=== PATIENT | female | born 1970 | race Caucasian/White ===

== ENCOUNTER → 2018-02-18 | Outpatient (REF) | payer OTHER ==
[2018-02-18 13:42] LABS: ERYTHROCYTE SEDIMENTATION RATE 41 mm/hr (0-20)
[2018-02-18 14:06] LABS: VITAMIN B12 LEVEL 386 PG/ML
[2018-02-18 14:09] LABS: RHEUMATOID FACTOR QUANT < 10.0 IU/ML (<15.0); TOTAL PROTEIN 7.6 GM/DL (6.4-8.2)
[2018-02-18 14:10] LABS: FOLATE 11.8 NG/ML
[2018-02-19 11:52] LABS: ALBUMIN 4.01 GM/DL (3.29-5.55); ALBUMIN % 52.7 % (55.8-66.1); ALPHA-1-GLOBULIN % 4.1 % (2.9-4.9); ALPHA-1-GLOBULINS 0.31 GM/DL (0.17-0.41); ALPHA-2-GLOBULINS 0.89 GM/DL (0.42-0.99); ALPHA-2-GLOBULINS % 11.7 % (7.1-11.8); BETA-1-GLOBULINS 0.68 GM/DL (0.28-0.60); BETA-2-GLOBULINS 0.59 GM/DL (0.19-0.55); BETA-2-GLOBULINS % 7.8 % (3.2-6.5); GAMMA GLOBULIN % 14.7 % (11.1-18.8); GAMMA GLOBULINS 1.12 GM/DL (0.65-1.58)
[2018-02-24 10:41] LABS: PTT LUPUS TYPE ANTICOAG SCREEN 0.9 (0-1.2)
[2018-02-25 00:07] LABS: ANCA-ATYPICAL <1:20 titer (Neg:<1:20); ANTI DOUBLE STRAND-DNA AB 7 IU/mL (0-9); ANTI THROMBIN 3 FUNCT ACTIVITY 107 % (75-135); ANTINUCLEAR ANTIBODIES DIRECT Negative (Negative); CARDIOLIPIN IGA ANTIBODY <9 APL U/mL (0-11); CARDIOLIPIN IGG ANTIBODY <9 GPL U/mL (0-14); CARDIOLIPIN IGM ANTIBODY <9 MPL U/mL (0-12); CERULOPLASMIN 25.1 mg/dL (19.0-39.0); COPPER PLASMA 104 ug/dL (72-166); CYTOPLASMIC NEUTROP AB ANCA-C <1:20 titer (Neg:<1:20); PERINUCLEAR AB ANCA-P <1:20 titer (Neg:<1:20); PROTEIN C FUNCTIONAL ACTIVITY 117 % (73-180); PROTEIN S FUNCTIONAL ACTIVITY 73 % (63-140); SJOGREN'S ANTI SS-A <0.2 AI (0.0-0.9); SJOGREN'S ANTI SS-B <0.2 AI (0.0-0.9)
== END ==
LOC: M LABNEURO 09:03
DX: I63.9 Cerebral infarction, unspecified (principal); G62.9 Polyneuropathy, unspecified
CPT/HCPCS: 82525

== ENCOUNTER → 2018-02-25 | Outpatient (CLI) | payer OTHER | LOC: M CARPUL 10:22 | DX: Z86.73 Personal history of transient ischemic attack (TIA), and cerebral infarction without residual deficits (principal) | CPT/HCPCS: 93306 ==

== ENCOUNTER → 2018-04-29 | Outpatient (CLI) | payer OTHER ==
[~2018-04-29] MED LIST: ISOVUE-370 76% 100ML VIAL (Q9967) As Ordered
[2018-04-29 13:56] LABS: ANION GAP 10 MEQ/L (8-16); BLOOD UREA NITROGEN 15 MG/DL (7-18); CALCIUM LEVEL 9.3 MG/DL (8.5-10.1); CARBON DIOXIDE LEVEL 26 MEQ/L (21-32); CHLORIDE LEVEL 103 MEQ/L (98-107); CREATININE FOR GFR 1.02 MG/DL (0.55-1.30); GLOMERULAR FILTRATION RATE > 60.0 (>58); GLUCOSE, FASTING 97 MG/DL (70-100); POTASSIUM SERUM 3.8 MEQ/L (3.5-5.1); SODIUM LEVEL 139 MEQ/L (136-145)
== END ==
LOC: M RAD 11:46
DX: Z01.818 Encounter for other preprocedural examination (principal); I73.9 Peripheral vascular disease, unspecified
CPT/HCPCS: Q9967

== ENCOUNTER → 2019-03-24 | Outpatient (REF) | payer OTHER | LOC: M LAB REF 09:53 | PROVIDERS: ATTEND Ophthalmology | DX: H17.11 Central corneal opacity, right eye (principal) ==

== ENCOUNTER 2019-06-17 05:50 | Day surgery (SDC) | payer OTHER ==
[~2019-06-17] VITALS: Ht 160 cm; Wt 90.3 kg
[~2019-06-17 05:50] MED LIST changes: +ATOR40TA75 PO; +CILO100T PO; +CLOP75TA2 PO; +CYAN100050 PO; +FERR325T82 PO; -ISOVUE-370 76% 100ML VIAL (Q9967) As Ordered; +JANU50TA4 PO; +LISI-538 PO; +METO1TAB32 PO; +PREN1TAB14 PO; +VALA1TAB2 PO
[2019-06-17] MEDS ORDERED: POVIDONE-IODINE 5% OPHTH PREP SOL 30ML As Ordered ONE (06:39)
[2019-06-17] MEDS ORDERED: BETAMETHASONE SOLUSPAN 6MG/ML INJ 5ML (J0702) As Ordered ONE (06:40)
[2019-06-17] MEDS ORDERED: TOBRADEX OPHTH OINT 3.5 GM As Ordered ONE ×2 (06:40→09:41)
[2019-06-17] MEDS ORDERED: TOBRAMYCIN INJ 80 MG/2 ML VIAL (J3260) As Ordered ONE (06:40)
[2019-06-17] MEDS ORDERED: fentaNYL 100 MCG/2 ML INJECTION (J3010) As Ordered ONE ×2 (07:09→09:59)
[2019-06-17] MEDS ORDERED: LIDOCAINE 2% INJ 100 MG/5 ML SDV (FOR ANES.) As Ordered ONE (07:09)
[2019-06-17] MEDS ORDERED: PROPOFOL 200 MG/20 ML VIAL As Ordered ONE (07:09)
[2019-06-17] MEDS ORDERED: MIDAZOLAM INJ 2 MG/2 ML VIAL (J2250) As Ordered ONE (07:09)
[2019-06-17] MEDS ORDERED: FILTER 1.2 MICRON (ADULT TPN/MANNITOL/REMICADE) XX ONE (07:26)
[2019-06-17] MEDS ORDERED: MANNITOL IV SCH (07:30)
[2019-06-17] MEDS ORDERED: DILUENT IV SCH (07:30)
[2019-06-17] MEDS ORDERED: DUOVISC (0.50ML VISCOAT/0.55ML PROVISC) OPHTH KIT As Ordered ONE ×3 (07:35→08:26)
[2019-06-17] MEDS ORDERED: dexameTHASONE 4 MG/ML 1ML VIAL (J1100) As Ordered ONE (07:50)
[2019-06-17] MEDS ORDERED: ePHEDrine SULFATE 25 MG/5 ML(5MG/ML) SYRINGE As Ordered ONE (07:54)
[2019-06-17] MEDS ORDERED: PHENYLephrine HCL 500 MCG/5 ML (100MCG/ML) SYRINGE (J2370) As Ordered ONE (07:56)
[2019-06-17] MEDS ORDERED: ROCURONIUM BROMIDE 50 MG/5 ML VIAL As Ordered ONE (08:01)
[2019-06-17] MEDS ORDERED: ONDANSETRON 4MG/2ML VIAL (J2405) As Ordered ONE ×2 (08:11→10:05)
[2019-06-17] MEDS ORDERED: SUGAMMADEX SODIUM 500 MG/5 ML VIAL (BRIDION) As Ordered ONE (08:11)
[2019-06-17] MEDS ORDERED: ACETYLCHOLINE OPHTH SOLN 1% 2ML (MIOCHOL-E) As Ordered ONE (08:17)
[2019-06-17] MEDS ORDERED: TRIAMCINOLONE PRES FR 40 MG/ML 1ML(TRIESENCE)(OR EYE ONLY)(J3300 PER 1MG) As Ordered ONE (09:24)
[2019-06-17] MEDS ORDERED: FLUORESCEIN OPHTH 1 MG STRIP As Ordered ONE (09:31)
[2019-06-17] MEDS: fentaNYL 100 MCG/2 ML INJECTION (J3010) IV PRN ×4 (10:00→10:15)
[2019-06-17] MEDS ORDERED: METOCLOPRAMIDE INJ 10MG/2ML VIAL (J2765) As Ordered ONE (10:15)
[2019-06-17] MEDS ORDERED: ONDANSETRON 4MG/2ML VIAL (J2405) IV PRN (10:30)
[2019-06-17] MEDS ORDERED: METOCLOPRAMIDE INJ 10MG/2ML VIAL (J2765) IV PRN (10:30)
[2019-06-17 11:30] VITALS: BP 110/63
[2019-06-17] MEDS ORDERED: ACETAMINOPHEN 500 MG TAB As Ordered ONE (11:40)
[2019-06-17] MEDS ORDERED: ACETAMINOPHEN 500 MG TAB PO ONE (11:45)
--- NOTE | 2019-06-21 08:13 | RO ---
DATE OF PROCEDURE: 06/17/2019 PREOPERATIVE DIAGNOSES: 1. 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 2. 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 3. Iris atrophy, right eye. 4. Mild nuclear sclerosis, right eye POSTOPERATIVE DIAGNOSES: 1. 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 2. 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 3. Iris atrophy, right eye 4. Mild nuclear sclerosis, right eye 5. Temporary tarsorrhapy, right eye PROCEDURE: 1. Penetrating keratoplasty of the right eye (8.0 mm host/ 8.5 mm donor) 2. Sub-Tenon injections ( Triescence 0.5 mL and Tobramycin 0.5 mL). SURGEON: Gómez Duran DO WEIGHMASTER: None ANESTHESIA: General. DESCRIPTION OF PROCEDURE: The patient was seen and identified in the preoperative area. The consent was reviewed, and the surgical eye was marked. The patient was then transferred to the operating room. At that time, the patient was placed under general anesthesia per the anesthesia department and then the eye was prepped and draped in a sterile fashion. Tegaderm was used to isolate the upper and lower eyelids, and a wire lid speculum was placed. A Flieringa ring was sutured with three 6-0 nylon sutures to the sclera and then an 8.0 mm metal corneal was used to size the corneal graft. 8.0 mm was found to be an appropriate size to trephinate the host cornea, and decision was made to trephinate the donor at 8.5mm. At that time, attention was turned to the donor cornea. The cornea was placed endothelial side up in an 8.5 mm Albert punch. The cornea was trephinated to 8.5 mm. The corneal scleral rim was cut in half, and half was sent to pathology and the other half was sent to microbiology. Attention was then turned back to the patient. Using an 8.0 mm Albert-[place] vacuum corneal punch, the vacuum trephine was placed on the patient's cornea. Vacuum was then achieved, and approximately seven turns to the vacuum trephine was appropriate to partially trephinate the cornea. A paracentesis incision was made in the partial trephination line and then Provisc was injected into the anterior chamber. Using right going and then left going scissors, the cornea was removed in its entirety. Copious amounts of cohesive viscoelastic was placed on top of the iris. The donor cornea was brought near the patient's eye using Polack forceps and a [place] spatula. The first 10-0 nylon suture was placed at the 12 o'clock meridian, and then the four cardinal sutures were put into the position with 10-0 nylon sutures at 12, 6, 3, and 9 o'clock. Additional sutures 10-0 nylon sutures were placed circumferentially until the graft was secured into position and no leaks were found. Viscoelastic was washed from the anterior chamber. Sixteen sutures ended up being placed, and then the chamber was refilled with balance salt solution (BSS). Miochol was placed showing a moderately small pupil, and intraocular pressure was within normal limits. Using a Weck spear, all the sutures were dried and then rotated so that the knots were buried. The fluorescein strip was used to look for any leaks, and none were found. At that time, the Flieringa ring was removed. The speculum and Tegaderm were removed. 0.5 mL of Kenalog Triesence and tobramycin were injected into the inferior sub-Tenon space. A double-armed #5-0 nylon suture was used to place a temporary central tarsorrhaphy, and this was left untied. The long ends were secured to the patient's forehead with Steri-Strips. A large amount of TobraDex was placed into the eye, and then the eyelid was closed. A patch and shield were placed, and the patient was extubated without difficulty and sent to the postanesthesia care unit (PACU) in a stable condition. ERICKA
== END 2019-06-17 12:10 | disposition home or self-care (01) ==
LOC: M SDC 05:50
PROVIDERS: ATTEND Ophthalmology
DX: H17.11 Central corneal opacity, right eye (principal); B00.52 Herpesviral keratitis; H21.26 Iris atrophy (essential) (progressive); I11.0 Hypertensive heart disease with heart failure; I50.9 Heart failure, unspecified; Z95.5 Presence of coronary angioplasty implant and graft; E78.00 Pure hypercholesterolemia, unspecified; E11.9 Type 2 diabetes mellitus without complications; D64.9 Anemia, unspecified; I25.2 Old myocardial infarction; Z86.73 Personal history of transient ischemic attack (TIA), and cerebral infarction without residual deficits; Z98.84 Bariatric surgery status; Z79.899 Other long term (current) drug therapy; Z79.02 Long term (current) use of antithrombotics/antiplatelets; Z79.84 Long term (current) use of oral hypoglycemic drugs
CPT/HCPCS: 65730; 67515; 81025; 87070; 87075; 87076; 88300; J0702; J1100; J2250; J2370; J2405; J2765; J3010; J3260; J3300

== ENCOUNTER 2023-05-05 12:10 | Inpatient (IN) | payer OTHER ==
[~2023-05-05] VITALS: Ht 157.5 cm; Wt 100.0 kg
[~2023-05-05 12:10] MED LIST changes: -CILO100T PO; +CILO100T3 PO; +CYAN-1 PO; -CYAN100050 PO; -LISI-538 PO; +LISI20TA33 PO; -VALA1TAB2 PO; +VALA1TAB5 PO
[2023-05-05] MEDS ORDERED: NS 1,000 ML IV ONE (16:40)
[2023-05-05] MEDS ORDERED: ONDANSETRON 4MG 2ML VIAL IV ONE (16:40)
[2023-05-05] MEDS ORDERED: MORPHINE 4 MG/ML 1ML VIAL IV ONE (16:40)
[2023-05-05 17:43] LABS: BASO % 0.2 % (0.0-1.0); EOS % 0.1 % (0.0-3.0); HEMATOCRIT 39.5 % (36.0-47.0); HEMOGLOBIN 12.3 g/dl (12.0-15.5); LYMPH # 1.2 10^3/uL (1.5-5.0); LYMPH % 7.1 % (24.0-44.0); MEAN CORPUSCULAR HGB CONC 31.1 g/dl (32.0-36.5); MEAN CORPUSCULAR VOLUME 86.6 fl (80.0-96.0); MONO % 5.9 % (2.0-8.0); NEUTROPHILS # 14.3 10^3/uL (1.5-8.5); NEUTROPHILS % 86.4 % (36.0-66.0); PLATELET COUNT, AUTOMATED 631 10^3/uL (150-450); RED BLOOD COUNT 4.56 10^6/uL (4.00-5.40); WHITE BLOOD COUNT 16.6 10^3/uL (4.0-10.0)
[2023-05-05 17:58] LABS: CK-MB VALUE MASS < 1.0 NG/ML (<3.6); LIPASE 26 U/L (12-53)
[2023-05-05 18:00] LABS: ALKALINE PHOSPHATASE 113 U/L (46-116); ALT/SGPT 15 U/L (7.0-40); AST/SGOT 26 U/L (<34); BILIRUBIN,DIRECT 0.2 MG/DL (<0.4); BILIRUBIN,TOTAL 0.4 MG/DL (0.3-1.2); TOTAL PROTEIN 6.5 G/DL (5.7-8.2)
[2023-05-05 18:06] LABS: CPK CREATINE PHOSPHOKINASE 61 U/L (34-145); MB/CK RELATIVE INDEX 1.63 (< OR =4)
[2023-05-05] MEDS: GASTROGRAFIN SOLUTION 30ML PO SCH ×2 (18:24→18:54)
[2023-05-05 18:29] LABS: INR 1.11
[2023-05-05 18:30] LABS: PARTIAL THROMBOPLASTIN TIME 24.9 SECONDS (24.8-34.2)
[2023-05-05] MEDS ORDERED: ISOVUE-370 76% 100ML VIAL As Ordered ONE (18:48)
[2023-05-05 18:49] LABS: CK-MB VALUE MASS < 1.0 NG/ML (<3.6)
[2023-05-05 18:50] LABS: CPK CREATINE PHOSPHOKINASE 55 U/L (34-145); MB/CK RELATIVE INDEX 1.81 (< OR =4)
[2023-05-05] MEDS ORDERED: PIPERACILLIN/TAZOBACTAM SOD 3.375 GM in D5W MINI-BAG PLUS 50 ML IV ONE (20:55)
[2023-05-05] MEDS ORDERED: METOCLOPRAMIDE INJ 10MG/2ML VIAL IV PRN (21:35)
[2023-05-05] MEDS: NS 1,000 ML IV SCH (21:50)
[2023-05-05] MEDS ORDERED: DEXTROSE 50% 50ML SYRINGE IV PRN (21:55)
[2023-05-05] MEDS ORDERED: GLUCAGON INJ 1MG VIAL SC PRN (21:55)
[2023-05-05] MEDS ORDERED: GLUCOSE 4GM CHEW TABLET PO PRN (21:55)
[2023-05-05] MEDS ORDERED: ACETAMINOPHEN TAB 650MG DOSE (2X325MG) PO PRN (22:35)
[2023-05-05] MEDS ORDERED: MORPHINE 2 MG/ML 1ML VIAL IV PRN ×2 (22:35)
[2023-05-05] MEDS ORDERED: ALBUTEROL 90 MCG/ACT 8GM HFA INHALER INH PRN (22:45)
[2023-05-05 22:47] VITALS: BP 138/88; TEMP 97.3; O2SAT 100
[2023-05-05 23:32] LABS: APPEARANCE, URINE CLEAR (CLEAR); BACTERIA, URINE AUTO NEGATIVE (NEGATIVE); BILIRUBIN, URINE AUTO NEGATIVE (NEGATIVE); BLOOD, URINE BLOOD NEGATIVE (NEGATIVE); COLOR, URINE YELLOW (YELLOW); GLUCOSE, URINE (UA) AUTO NEGATIVE (NEGATIVE); KETONE, URINE AUTO 1+ mg/dL (NEGATIVE); LEUKOCYTE ESTERASE, URINE AUTO NEGATIVE (NEGATIVE); MUCUS, URINE SMALL (NEGATIVE); NITRITE, URINE AUTO NEGATIVE (NEGATIVE); PROTEIN, URINE AUTO NEGATIVE (NEGATIVE); RBC, URINE AUTO 2 /HPF (0-3); SPECIFIC GRAVITY URINE AUTO 1.046 (1.002-1.035); SQUAMOUS EPITHELIAL CELL UR AU 2 /HPF (0-6); UROBILINOGEN, URINE AUTO 0.2 mg/dL (0.0-2.0); WBC, URINE AUTO 2 /HPF (0-3)
[2023-05-05] MEDS ORDERED: ASPI-226 PO (23:33)
[2023-05-05] MEDS ORDERED: PANT40TA29 PO (23:33)
[2023-05-05] MEDS ORDERED: ELIQ5TAB PO (23:33)
[2023-05-05] MEDS ORDERED: TRUL10IN SC (23:33)
[2023-05-05] MEDS ORDERED: LISI5TAB11 PO (23:33)
[2023-05-05] MEDS ORDERED: ALBU8.5H INH (23:34)
[2023-05-05] MEDS ORDERED: HOME MED LIST COMPLETE! XX SCH (23:35)
[2023-05-06] MEDS: APIXABAN 5 MG TAB (ELIQUIS) PO SCH ×3 (00:07→19:55)
[2023-05-06] MEDS: PANTOPRAZOLE 40MG VIAL IV SCH ×2 (00:07→12:01)
[2023-05-06] MEDS: ATORVASTATIN 20 MG TAB PO SCH ×2 (00:07→19:55)
[2023-05-06] MEDS: PIPERACILLIN/TAZOBACTAM SOD 3.375 GM in D5W MINI-BAG PLUS 50 ML IV SCH ×2 (02:05→10:14)
[2023-05-06 06:00] VITALS: BP 106/67; TEMP 97.7; O2SAT 97
[2023-05-06 06:20] LABS: BASO % 0.5 % (0.0-1.0); EOS # 0.4 10^3/uL (0.0-0.5); HEMATOCRIT 32.8 % (36.0-47.0); LYMPH # 2.1 10^3/uL (1.5-5.0); LYMPH % 24.1 % (24.0-44.0); MEAN CORPUSCULAR HEMOGLOBIN 26.8 pg (27.0-33.0); MEAN CORPUSCULAR HGB CONC 31.1 g/dl (32.0-36.5); MEAN CORPUSCULAR VOLUME 86.3 fl (80.0-96.0); MONO % 11.5 % (2.0-8.0); NEUTROPHILS % 58.6 % (36.0-66.0); WHITE BLOOD COUNT 8.6 10^3/uL (4.0-10.0)
[2023-05-06 06:27] LABS: HEMOGLOBIN 10.2 g/dl (12.0-15.5); PLATELET COUNT, AUTOMATED 497 10^3/uL (150-450)
[2023-05-06 06:44] LABS: ALBUMIN 2.3 G/DL (3.2-5.2); ALKALINE PHOSPHATASE 85 U/L (46-116); ALT/SGPT < 9 U/L (7.0-40); AST/SGOT 12 U/L (<34); BILIRUBIN,TOTAL 0.6 MG/DL (0.3-1.2); BLOOD UREA NITROGEN 12 MG/DL (9-23); CALCIUM LEVEL 8.4 MG/DL (8.5-10.1); CARBON DIOXIDE LEVEL 30 MMOL/L (20-31); CHLORIDE LEVEL 104 MMOL/L (98-107); CREATININE FOR GFR 1.02 MG/DL (0.55-1.30); GLOMERULAR FILTRATION RATE > 60.0 (>51); GLUCOSE, FASTING 96 MG/DL (60-100); POTASSIUM SERUM 3.7 MMOL/L (3.5-5.1); SODIUM LEVEL 140 MMOL/L (136-145); TOTAL PROTEIN 4.9 G/DL (5.7-8.2)
[2023-05-06] MEDS: INSULIN LISPRO (NovoLOG) PER UNIT SC SCH ×3 (07:30→17:33)
[2023-05-06] MEDS: NS 1,000 ML IV SCH (08:19)
[2023-05-06 08:40] VITALS: BP 119/73; TEMP 97.5; O2SAT 97
[2023-05-06] MEDS: ASPIRIN 81MG ENTERIC TABLET PO SCH (10:14)
[2023-05-06] MEDS: AUGMENTIN 875 MG TAB PO SCH ×2 (13:27→19:55)
[2023-05-06 13:49] VITALS: BP 127/78; TEMP 97.5; O2SAT 97
[2023-05-06 14:00] VITALS: BP 129/83; TEMP 97.9; O2SAT 98
[2023-05-06] MEDS ORDERED: AMOX875T2 PO (14:13)
[2023-05-06] MEDS: ONDANSETRON 4MG ORAL DISINTEGRATING TAB SL PRN (14:45)
[2023-05-06] MEDS ORDERED: PROMETHAZINE 25 MG TAB PO PRN (19:00)
[2023-05-06 20:00] VITALS: BP 120/69; TEMP 98.1; O2SAT 92
[2023-05-06] MEDS ORDERED: INSULIN LISPRO (NovoLOG) PER UNIT SC SCH (21:00)
[2023-05-06] MEDS ORDERED: KETOROLAC 30 MG/ML 1ML VIAL IV PRN (22:25)
[2023-05-06] MEDS ORDERED: MORPHINE 2 MG/ML 1ML VIAL IV ONE (23:00)
[2023-05-07 06:00] VITALS: BP 114/66; TEMP 97.7; O2SAT 97
[2023-05-07] MEDS ORDERED: MESALAMINE 250 MG CR CAP PO SCH (06:00)
[2023-05-07 07:02] LABS: BASO # 0.1 10^3/uL (0.0-0.2); BASO % 0.5 % (0.0-1.0); EOS # 0.5 10^3/uL (0.0-0.5); EOS % 4.9 % (0.0-3.0); HEMATOCRIT 36.8 % (36.0-47.0); HEMOGLOBIN 11.3 g/dl (12.0-15.5); LYMPH # 2.4 10^3/uL (1.5-5.0); LYMPH % 24.2 % (24.0-44.0); MEAN CORPUSCULAR HGB CONC 30.7 g/dl (32.0-36.5); MEAN CORPUSCULAR VOLUME 87.8 fl (80.0-96.0); MONO % 9.7 % (2.0-8.0); NEUTROPHILS # 5.9 10^3/uL (1.5-8.5); NEUTROPHILS % 60.4 % (36.0-66.0); PLATELET COUNT, AUTOMATED 479 10^3/uL (150-450); RED BLOOD COUNT 4.19 10^6/uL (4.00-5.40); WHITE BLOOD COUNT 9.8 10^3/uL (4.0-10.0)
[2023-05-07] MEDS: INSULIN LISPRO (NovoLOG) PER UNIT SC SCH (07:30)
[2023-05-07 07:34] LABS: ALBUMIN 2.3 G/DL (3.2-5.2); BILIRUBIN,TOTAL 0.3 MG/DL (0.3-1.2); CALCIUM LEVEL 8.3 MG/DL (8.5-10.1); CREATININE FOR GFR 1.03 MG/DL (0.55-1.30); GLOMERULAR FILTRATION RATE 59.9 (>51); POTASSIUM SERUM 3.8 MMOL/L (3.5-5.1); TOTAL PROTEIN 5.2 G/DL (5.7-8.2)
[2023-05-07] MEDS ORDERED: methylPREDNISolone 125MG 2ML VIAL IV ONE (08:30)
[2023-05-07] MEDS: ASPIRIN 81MG ENTERIC TABLET PO SCH (08:34)
[2023-05-07] MEDS: ONDANSETRON 4MG ORAL DISINTEGRATING TAB SL PRN (08:35)
[2023-05-07] MEDS: APIXABAN 5 MG TAB (ELIQUIS) PO SCH (08:35)
[2023-05-07] MEDS: AUGMENTIN 875 MG TAB PO SCH (08:35)
[2023-05-07] MEDS ORDERED: BUDE3CAP PO (09:48)
[2023-05-07] MEDS ORDERED: MESA24CASA PO (09:48)
[2023-05-07] MEDS ORDERED: AMOX875T2 PO (09:49)
== END 2023-05-07 11:40 | disposition home or self-care (01) | DRG 392 ==
LOC: M ED 12:10 → M ED INP 21:32 → M MSPAV 22:47
PROVIDERS: ADMIT Family Medicine; ATTEND Student in an Organized Health Care Education/Training Program
DX: K52.9 Noninfective gastroenteritis and colitis, unspecified (principal); I25.2 Old myocardial infarction; I10 Essential (primary) hypertension; E11.9 Type 2 diabetes mellitus without complications; E87.6 Hypokalemia; E73.9 Lactose intolerance, unspecified; E87.5 Hyperkalemia; I25.10 Atherosclerotic heart disease of native coronary artery without angina pectoris; D64.9 Anemia, unspecified; Z98.84 Bariatric surgery status; Z86.73 Personal history of transient ischemic attack (TIA), and cerebral infarction without residual deficits; Z95.5 Presence of coronary angioplasty implant and graft; Z79.01 Long term (current) use of anticoagulants; Z79.82 Long term (current) use of aspirin; Z79.899 Other long term (current) drug therapy

== ENCOUNTER 2023-05-17 19:11 | Inpatient (IN) | payer OTHER ==
[~2023-05-17] VITALS: Ht 157.5 cm; Wt 96.3 kg
[~2023-05-17 19:11] MED LIST changes: +ALBU8.5H INH; +AMOX875T2 PO; +ASPI-226 PO; +BUDE3CAP PO; +ELIQ5TAB PO; +LISI5TAB11 PO; +MESA24CASA PO; +PANT40TA29 PO; +TRUL10IN SC
[2023-05-17 20:47] LABS: BASO # 0.1 10^3/uL (0.0-0.2); BASO % 0.2 % (0.0-1.0); EOS % 0.1 % (0.0-3.0); HEMOGLOBIN 13.3 g/dl (12.0-15.5); LYMPH # 0.9 10^3/uL (1.5-5.0); LYMPH % 3.6 % (24.0-44.0); MEAN CORPUSCULAR HEMOGLOBIN 26.9 pg (27.0-33.0); MEAN CORPUSCULAR HGB CONC 31.7 g/dl (32.0-36.5); MONO % 6.3 % (2.0-8.0); NEUTROPHILS # 22.4 10^3/uL (1.5-8.5); NEUTROPHILS % 89.4 % (36.0-66.0); PLATELET COUNT, AUTOMATED 495 10^3/uL (150-450); RED BLOOD COUNT 4.94 10^6/uL (4.00-5.40)
[2023-05-17 21:10] LABS: MONO # 1.6 10^3/uL (0.0-0.8)
[2023-05-17] MEDS ORDERED: NS 1,000 ML IV ONE (21:10)
[2023-05-17] MEDS ORDERED: MORPHINE 4 MG/ML 1ML VIAL IV ONE (21:10)
[2023-05-17] MEDS ORDERED: ONDANSETRON 4MG 2ML VIAL IV ONE (21:10)
[2023-05-17 21:16] LABS: BILIRUBIN,DIRECT 0.2 MG/DL (<0.4); BILIRUBIN,TOTAL 0.7 MG/DL (0.3-1.2); CALCIUM LEVEL 9.2 MG/DL (8.5-10.1); CREATININE FOR GFR 1.09 MG/DL (0.55-1.30); GLOMERULAR FILTRATION RATE 56.1 (>51); POTASSIUM SERUM 4.5 MMOL/L (3.5-5.1); TOTAL PROTEIN 6.4 G/DL (5.7-8.2)
[2023-05-17] MEDS ORDERED: ISOVUE-370 76% 100ML VIAL As Ordered ONE (21:40)
[2023-05-17] MEDS ORDERED: med rec comment (23:41)
[2023-05-17] MEDS ORDERED: HOME MED LIST COMPLETE! XX SCH (23:45)
[2023-05-18] VITALS (8 sets, daily range): BP systolic 99–133; BP diastolic 53–97; TEMP 96.6–97.7; O2SAT 95–98
[2023-05-18] MEDS ORDERED: DEXTROSE 50% 50ML SYRINGE IV PRN ×2 (00:15→17:45)
[2023-05-18] MEDS ORDERED: MORPHINE 4 MG/ML 1ML VIAL IV PRN (00:15)
[2023-05-18] MEDS ORDERED: GLUCOSE 4GM CHEW TABLET PO PRN ×2 (00:15→17:45)
[2023-05-18] MEDS ORDERED: MORPHINE 2 MG/ML 1ML VIAL IV PRN (00:15)
[2023-05-18] MEDS ORDERED: GLUCAGON INJ 1MG VIAL SC PRN ×2 (00:15→17:45)
[2023-05-18] MEDS ORDERED: CHLORASEPTIC SPRAY MT PRN (00:25)
[2023-05-18] MEDS ORDERED: ALBUTEROL 90 MCG/ACT 8GM HFA INHALER INH PRN (01:15)
[2023-05-18] MEDS: LR 1,000 ML IV SCH ×2 (02:19→11:51)
[2023-05-18] MEDS: ONDANSETRON 4MG 2ML VIAL IV PRN ×3 (02:19→16:47)
[2023-05-18] MEDS: INSULIN LISPRO (NovoLOG) PER UNIT SC SCH ×3 (05:33→12:08)
[2023-05-18 07:02] LABS: HEMATOCRIT 36.5 % (36.0-47.0); HEMOGLOBIN 11.5 g/dl (12.0-15.5); MEAN CORPUSCULAR HEMOGLOBIN 26.8 pg (27.0-33.0); MEAN CORPUSCULAR HGB CONC 31.5 g/dl (32.0-36.5); MEAN CORPUSCULAR VOLUME 85.1 fl (80.0-96.0); PLATELET COUNT, AUTOMATED 450 10^3/uL (150-450); RED BLOOD COUNT 4.29 10^6/uL (4.00-5.40); WHITE BLOOD COUNT 13.8 10^3/uL (4.0-10.0)
[2023-05-18 07:17] LABS: APPEARANCE, URINE CLEAR (CLEAR); BACTERIA, URINE AUTO NEGATIVE (NEGATIVE); BILIRUBIN, URINE AUTO NEGATIVE (NEGATIVE); BLOOD, URINE BLOOD NEGATIVE (NEGATIVE); COLOR, URINE YELLOW (YELLOW); GLUCOSE, URINE (UA) AUTO NEGATIVE (NEGATIVE); KETONE, URINE AUTO NEGATIVE (NEGATIVE); LEUKOCYTE ESTERASE, URINE AUTO NEGATIVE (NEGATIVE); MUCUS, URINE SMALL (NEGATIVE); NITRITE, URINE AUTO NEGATIVE (NEGATIVE); PROTEIN, URINE AUTO NEGATIVE (NEGATIVE); RBC, URINE AUTO 0 /HPF (0-3); SPECIFIC GRAVITY URINE AUTO 1.047 (1.002-1.035); SQUAMOUS EPITHELIAL CELL UR AU 0 /HPF (0-6); WBC, URINE AUTO 0 /HPF (0-3)
[2023-05-18 07:22] LABS: BLOOD UREA NITROGEN 12 MG/DL (9-23); CALCIUM LEVEL 8.6 MG/DL (8.5-10.1); CARBON DIOXIDE LEVEL 30 MMOL/L (20-31); CHLORIDE LEVEL 101 MMOL/L (98-107); CREATININE FOR GFR 1.01 MG/DL (0.55-1.30); GLOMERULAR FILTRATION RATE > 60.0 (>51); GLUCOSE, FASTING 122 MG/DL (60-100); MAGNESIUM LEVEL 1.7 MG/DL (1.8-2.4); POTASSIUM SERUM 4.4 MMOL/L (3.5-5.1); SODIUM LEVEL 137 MMOL/L (136-145)
[2023-05-18 07:34] LABS: PROCALCITONIN 0.12 ng/ml
[2023-05-18] MEDS: PANTOPRAZOLE 40MG VIAL IV SCH (08:07)
[2023-05-18] MEDS ORDERED: ceFAZolin 2 GM/D5W 50 ML IV BAG As Ordered ONE (13:59)
[2023-05-18] MEDS ORDERED: LIDOCAINE 1% SDV 30ML VIAL As Ordered ONE (13:59)
[2023-05-18] MEDS ORDERED: fentaNYL 100 MCG/2 ML INJECTION As Ordered ONE (14:49)
[2023-05-18] MEDS ORDERED: PHENYLephrine 500MCG 5ML (100MCG/ML) SYRINGE As Ordered ONE (14:49)
[2023-05-18] MEDS ORDERED: propofoL 200 MG/20 ML VIAL As Ordered ONE (14:49)
[2023-05-18] MEDS ORDERED: ROCURONIUM BROMIDE 50MG/5ML VIAL As Ordered ONE (14:49)
[2023-05-18] MEDS ORDERED: LIDOCAINE 2% 100MG/5ML SDV (FOR ANES.) As Ordered ONE (14:49)
[2023-05-18] MEDS ORDERED: ONDANSETRON 4MG 2ML VIAL As Ordered ONE (14:49)
[2023-05-18] MEDS ORDERED: SUGAMMADEX SODIUM 500 MG/5 ML VIAL (BRIDION) As Ordered ONE (14:49)
[2023-05-18] MEDS ORDERED: MIDAZOLAM INJ 2MG/2ML VIAL As Ordered ONE (14:49)
[2023-05-18] MEDS ORDERED: ACETAMINOPHEN 1000MG 100ML IV BAG As Ordered ONE (14:54)
[2023-05-18] MEDS ORDERED: HYDROmorphone HCL 2MG/ML 1ML VIAL As Ordered ONE (15:00)
[2023-05-18] MEDS ORDERED: LR 1,000 ML IV SCH (16:15)
[2023-05-18] MEDS ORDERED: oxyCODONE 5MG TAB PO PRN (16:15)
[2023-05-18] MEDS ORDERED: ONDANSETRON 4MG 2ML VIAL IV PRN (16:15)
[2023-05-18] MEDS ORDERED: fentaNYL 100 MCG/2 ML INJECTION IV PRN (16:15)
[2023-05-18] MEDS ORDERED: HYDROMORPHONE HCL 0.5 MG/ 0.5 ML SYRINGE IV PRN (16:15)
[2023-05-18] MEDS ORDERED: PROMETHAZINE 25MG/ML 1ML VIAL IV ONE (18:00)
[2023-05-18] MEDS: APIXABAN 5 MG TAB (ELIQUIS) PO SCH (20:24)
[2023-05-18] MEDS ORDERED: INSULIN LISPRO (NovoLOG) PER UNIT SC SCH (21:00)
[2023-05-19 02:00] VITALS: BP 110/60; TEMP 97.2; O2SAT 99
[2023-05-19 06:00] VITALS: BP 112/70; TEMP 97; O2SAT 98
[2023-05-19 06:13] LABS: BASO % 0.2 % (0.0-1.0); EOS % 0.3 % (0.0-3.0); LYMPH # 1.1 10^3/uL (1.5-5.0); LYMPH % 9.8 % (24.0-44.0); MEAN CORPUSCULAR HGB CONC 31.4 g/dl (32.0-36.5); MONO # 0.8 10^3/uL (0.0-0.8); MONO % 7.8 % (2.0-8.0); NEUTROPHILS # 8.8 10^3/uL (1.5-8.5); NEUTROPHILS % 81.5 % (36.0-66.0); PLATELET COUNT, AUTOMATED 418 10^3/uL (150-450); RED BLOOD COUNT 4.07 10^6/uL (4.00-5.40); WHITE BLOOD COUNT 10.7 10^3/uL (4.0-10.0)
[2023-05-19 06:44] LABS: CALCIUM LEVEL 8.9 MG/DL (8.5-10.1); CREATININE FOR GFR 1.07 MG/DL (0.55-1.30); GLOMERULAR FILTRATION RATE 57.3 (>51); MAGNESIUM LEVEL 1.7 MG/DL (1.8-2.4); POTASSIUM SERUM 5.1 MMOL/L (3.5-5.1)
[2023-05-19] MEDS: APIXABAN 5 MG TAB (ELIQUIS) PO SCH (07:52)
[2023-05-19] MEDS: PANTOPRAZOLE 40MG VIAL IV SCH (07:53)
[2023-05-19] MEDS: INSULIN LISPRO (NovoLOG) PER UNIT SC SCH ×2 (07:54→12:15)
[2023-05-19] MEDS ORDERED: MAGNESIUM OXIDE 400MG TAB (MAG-OX) PO SCH (09:00)
[2023-05-19] MEDS ORDERED: XIFA200T2 PO (12:22)
[2023-05-19] MEDS ORDERED: MAGN400T2 PO (12:22)
[2023-05-19 12:46] VITALS: O2SAT 94
== END 2023-05-19 17:10 | disposition home or self-care (01) | DRG 337 ==
LOC: M ED 19:11 → M ED INP 05-18 00:12 → M MS5PR 05-18 00:25
PROVIDERS: ADMIT Internal Medicine; ATTEND Student in an Organized Health Care Education/Training Program
PROC: 0DNU4ZZ Release Omentum, Percutaneous Endoscopic Approach (ICD-10-PCS; principal; 2023-05-18 08:30)
DX: K56.600 Partial intestinal obstruction, unspecified as to cause (principal); I25.10 Atherosclerotic heart disease of native coronary artery without angina pectoris; I10 Essential (primary) hypertension; E66.01 Morbid (severe) obesity due to excess calories; E78.5 Hyperlipidemia, unspecified; E11.9 Type 2 diabetes mellitus without complications; Z86.718 Personal history of other venous thrombosis and embolism; Z79.01 Long term (current) use of anticoagulants; Z79.82 Long term (current) use of aspirin; Z79.899 Other long term (current) drug therapy; E73.9 Lactose intolerance, unspecified; Z95.5 Presence of coronary angioplasty implant and graft; Z98.84 Bariatric surgery status; Z68.38 Body mass index [BMI] 38.0-38.9, adult; D72.829 Elevated white blood cell count, unspecified

== ENCOUNTER 2024-02-19 11:16 | Day surgery (SDC) | payer OTHER ==
[~2024-02-19] VITALS: Ht 157.5 cm; Wt 92.9 kg
[~2024-02-19 11:16] MED LIST changes: +GABA-282 PO; +IRON65TA2 PO; +MAGN400T2 PO; +MIDAZOLAM INJ 2MG/2ML VIAL As Ordered ONE; +PHENYLEPHRINE 10% OPHTH SOL 5ML OD PRN; +XIFA200T2 PO; +fentaNYL 100 MCG/2 ML INJECTION As Ordered ONE; +med rec comment
[2024-02-19] MEDS: ATROPINE SULFATE 1% OPHTH SOLN 2ML BTL OD SCH (11:33)
[2024-02-19] MEDS: OFLOXACIN 0.3 % (OCUFLOX) OPTH SOL 5ML OD ONE (11:33)
[2024-02-19] MEDS: TROPICAMIDE 1% OPHTH SOLN 15ML OD SCH (11:33)
[2024-02-19] MEDS: PHENYLEPHRINE 2.5% OPHTH SOL 2ML OD SCH (11:33)
[2024-02-19] MEDS: LIDOCAINE 3.5 % 1ML OPHTH TOPICAL GEL OU ONE (11:33)
[2024-02-19] MEDS: LIDOCAINE 1% SDV 5ML VIAL As Ordered ONE (12:15)
[2024-02-19] MEDS: BSS IRRIG/VANCO(10MG)/TOBRA(5MG)/EPINEPH(1:1000-0.5CC)500ML BAG-ORONLY As Ordered ONE (12:15)
[2024-02-19] MEDS: CEFUROXIME 1MG/0.1ML INTRACAMERAL INJ As Ordered ONE (12:16)
[2024-02-19 12:30] VITALS: BP 126/73; TEMP 97; O2SAT 99
== END 2024-02-19 12:45 | disposition home or self-care (01) ==
LOC: M SDC 11:16
PROVIDERS: ATTEND Ophthalmology
DX: H25.11 Age-related nuclear cataract, right eye (principal); I25.10 Atherosclerotic heart disease of native coronary artery without angina pectoris; I10 Essential (primary) hypertension; E78.00 Pure hypercholesterolemia, unspecified; D64.9 Anemia, unspecified; E73.9 Lactose intolerance, unspecified; I25.2 Old myocardial infarction; Z79.01 Long term (current) use of anticoagulants; Z79.82 Long term (current) use of aspirin; Z79.899 Other long term (current) drug therapy; Z86.73 Personal history of transient ischemic attack (TIA), and cerebral infarction without residual deficits; Z95.5 Presence of coronary angioplasty implant and graft; Z98.84 Bariatric surgery status; Z87.891 Personal history of nicotine dependence
CPT/HCPCS: 66984; 92015; J0697; J2250; J3010; V2632

== ENCOUNTER 2024-07-26 11:06 | Outpatient (CLI) | payer OTHER ==
[~2024-07-26] VITALS: Ht 160 cm; Wt 96.3 kg
[~2024-07-26 11:06] MED LIST changes: +ALBUTEROL SULFATE 2.5MG/0.5ML INH NEB SOLN INH PRN; +EPINEPHrine INJ 1 MG/ML 1ML AMP IM PRN; +GABA-1172 PO; -GABA-282 PO; -MIDAZOLAM INJ 2MG/2ML VIAL As Ordered ONE; -PHENYLEPHRINE 10% OPHTH SOL 5ML OD PRN; +diphenhydrAMINE 50MG/ML VIAL IV PRN; -fentaNYL 100 MCG/2 ML INJECTION As Ordered ONE; +methylPREDNISolone 125MG 2ML VIAL IV PRN
[2024-07-26 11:15] VITALS: BP 137/65; O2SAT 98
[2024-07-26] MEDS: diphenhydrAMINE 25MG CAP PO ONE (11:22)
[2024-07-26] MEDS: ACETAMINOPHEN 325 MG TAB PO ONE (11:23)
[2024-07-26] MEDS: IRON SUCROSE 300 MG in NS 250 ML IV ONE (11:59)
[2024-07-26 13:40] VITALS: BP 111/73; O2SAT 98
[2024-07-26] MEDS ORDERED: diphenhydrAMINE 25MG CAP PO ONE (15:00)
[2024-07-26] MEDS ORDERED: ACETAMINOPHEN 325 MG TAB PO ONE (15:00)
== END 2024-07-26 13:40 | disposition home or self-care (01) ==
LOC: M INFU 11:06
PROVIDERS: ATTEND Family Medicine
DX: D50.9 Iron deficiency anemia, unspecified (principal)
CPT/HCPCS: 96365; 96366; J1756

== ENCOUNTER → 2025-05-10 | Outpatient (CLI) | payer OTHER, MEDICAID ==
[~2025-05-10] MED LIST changes: -ALBUTEROL SULFATE 2.5MG/0.5ML INH NEB SOLN INH PRN; -EPINEPHrine INJ 1 MG/ML 1ML AMP IM PRN; +JARD1TAB; +METH-1164; +METO1TAB32; +SPIR-10; -diphenhydrAMINE 50MG/ML VIAL IV PRN; -methylPREDNISolone 125MG 2ML VIAL IV PRN
== END ==
LOC: M PLAIMG 08:12
PROVIDERS: ATTEND Internal Medicine
DX: R01.1 Cardiac murmur, unspecified (principal)